=== PATIENT | female | born 1935 | race African-American/Black ===

== ENCOUNTER 2018-01-16 14:42 | Emergency (ER) | payer OTHER ==
[~2018-01-16] VITALS: Ht 154.9 cm; Wt 84.4 kg
[~2018-01-16 14:42] MED LIST: AMLODIPINE BESYL5 MG; ASA81 MG; AVAPRO300 MG; HUMALOG MIX 75/23 M1; OMEPRAZOLE20 MG; SIMVASTATIN20 MG
[2018-01-17] MEDS ORDERED: ULTRACET PO (07:06)
[2018-01-17] MEDS ORDERED: BACTRIM DS TAB1 EACH PO (07:06)
== END 2018-01-17 08:07 | disposition home or self-care (01) ==
LOC: ER 14:42
DX: M54.89 Other dorsalgia (principal); R12 Heartburn; N39.0 Urinary tract infection, site not specified; E86.0 Dehydration; D72.828 Other elevated white blood cell count; J11.1 Influenza due to unidentified influenza virus with other respiratory manifestations

== ENCOUNTER 2021-06-03 18:16 | Inpatient (IN) | payer OTHER ==
[~2021-06-03] VITALS: Ht 154.9 cm; Wt 79.4 kg
[~2021-06-03 18:16] MED LIST changes: +BACTRIM DS TAB1 EACH PO; +ULTRACET PO
== END 2021-06-07 13:47 | disposition home or self-care (01) | DRG 291 ==
LOC: ER 18:16 → SEC-K 06-04 08:20 → MEDJ 06-04 08:20
PROVIDERS: ADMIT Internal Medicine; ATTEND Internal Medicine
PROC: B24BZZZ Ultrasonography of Heart with Aorta (ICD-10-PCS; principal; 2021-06-04)
PROC: 4A12X4Z Monitoring of Cardiac Electrical Activity, External Approach (ICD-10-PCS; 2021-06-04)
DX: I13.0 Hypertensive heart and chronic kidney disease with heart failure and stage 1 through stage 4 chronic kidney disease, or unspecified chronic kidney disease (principal); J18.8 Other pneumonia, unspecified organism; I50.1 Left ventricular failure, unspecified; I35.0 Nonrheumatic aortic (valve) stenosis; N18.9 Chronic kidney disease, unspecified; E11.22 Type 2 diabetes mellitus with diabetic chronic kidney disease; E86.0 Dehydration; R01.1 Cardiac murmur, unspecified; Z79.4 Long term (current) use of insulin; E66.9 Obesity, unspecified

== ENCOUNTER 2021-09-24 12:19 | Inpatient (IN) | payer OTHER ==
[~2021-09-24] VITALS: Ht 162.6 cm; Wt 70.3 kg
[2021-09-24] MEDS ORDERED: SIMVASTATIN5 MG PO (13:29)
[2021-09-24] MEDS ORDERED: AMLODIPINE-OLM1 EAC2 PO (13:30)
[2021-09-24] MEDS ORDERED: LOSARTAN-HCTZ1 EAC1 PO (13:30)
== END 2021-10-09 17:18 | disposition home or self-care (01) | DRG 281 ==
LOC: ER 12:19 → ICU-2 23:27 → MEDI 09-27 15:24
PROVIDERS: ADMIT Internal Medicine; ATTEND Internal Medicine
PROC: B24BZZZ Ultrasonography of Heart with Aorta (ICD-10-PCS; principal; 2021-09-24)
PROC: BW24ZZZ Computerized Tomography (CT Scan) of Chest and Abdomen (ICD-10-PCS; 2021-09-24)
PROC: 4A12X4Z Monitoring of Cardiac Electrical Activity, External Approach (ICD-10-PCS; 2021-09-27)
DX: I13.0 Hypertensive heart and chronic kidney disease with heart failure and stage 1 through stage 4 chronic kidney disease, or unspecified chronic kidney disease (principal); I21.A1 Myocardial infarction type 2; N17.8 Other acute kidney failure; J81.1 Chronic pulmonary edema; I11.0 Hypertensive heart disease with heart failure; I50.9 Heart failure, unspecified; I35.0 Nonrheumatic aortic (valve) stenosis; R09.02 Hypoxemia; R01.1 Cardiac murmur, unspecified; R06.02 Shortness of breath; I48.91 Unspecified atrial fibrillation; E11.22 Type 2 diabetes mellitus with diabetic chronic kidney disease; Z79.4 Long term (current) use of insulin; E78.49 Other hyperlipidemia; N18.9 Chronic kidney disease, unspecified; Z74.01 Bed confinement status; Z20.822 Contact with and (suspected) exposure to COVID-19